=== PATIENT | male | born 1970 | race Caucasian/White ===

== ENCOUNTER 2021-06-12 01:38 | Emergency (ER) | payer MEDICAID ==
[~2021-06-12] VITALS: Ht 177.8 cm; Wt 91.0 kg
[2021-06-12 01:40] VITALS: BP 114/77
== END 2021-06-12 09:23 | disposition left against medical advice (07) ==
LOC: ER 01:38
DX: Z53.21 Procedure and treatment not carried out due to patient leaving prior to being seen by health care provider (principal)

== ENCOUNTER 2021-12-06 19:21 | Emergency (ER) | payer MEDICAID | END 2021-12-06 21:18 | disposition left against medical advice (07) | LOC: ER 19:21 | DX: Z53.21 Procedure and treatment not carried out due to patient leaving prior to being seen by health care provider (principal) ==

== ENCOUNTER 2021-12-13 08:31 | Emergency (ER) | payer MEDICAID ==
[~2021-12-13] VITALS: Ht 177.8 cm; Wt 77.0 kg
[2021-12-13 08:37] VITALS: BP 127/87
== END 2021-12-13 10:25 | disposition left against medical advice (07) ==
LOC: ER 08:31
DX: Z53.21 Procedure and treatment not carried out due to patient leaving prior to being seen by health care provider (principal)

== ENCOUNTER 2024-01-15 13:02 | Emergency (ER) | payer MEDICAID ==
[~2024-01-15] VITALS: Ht 177.8 cm; Wt 83.0 kg
[~2024-01-15 13:02] MED LIST: LEVO-65 MT; TAMS-11 MT
[2024-01-15 13:05] VITALS: O2SAT 99
[2024-01-15 13:14] VITALS: BP 124/83; PULSE 100; RESP 16; TEMP 98; O2SAT 98
== END 2024-01-15 16:52 | disposition home or self-care (01) ==
LOC: ER 13:02
DX: S90.822A Blister (nonthermal), left foot, initial encounter (principal); I10 Essential (primary) hypertension; Z98.890 Other specified postprocedural states; X58.XXXA Exposure to other specified factors, initial encounter; Y93.89 Activity, other specified; Y92.89 Other specified places as the place of occurrence of the external cause; Y99.8 Other external cause status
CPT/HCPCS: 73630; 99283

== ENCOUNTER 2024-02-20 09:08 | Emergency (ER) | payer MEDICAID ==
[~2024-02-20] VITALS: Ht 172.7 cm; Wt 81.0 kg
[2024-02-20 09:16] VITALS: O2SAT 98
[2024-02-20 10:46] LABS: CHLORIDE 99 mEq/L (98-107); POTASSIUM 3.2 mEq/L (3.5-5.1); SODIUM 135 mEq/L (136-145)
[2024-02-20 10:47] LABS: BASOPHILS % 0.8 % (0.0-2.0); CALCIUM 10.1 mg/dL (8.7-10.4); CARBON DIOXIDE 23 mEq/L (21-32); EOSINOPHILS % 1.1 % (0.0-5.0); HEMATOCRIT. 38.3 % (42.0-52.0); LYMPHOCYTES % 18.5 % (20.0-50.0); MEAN CORPUSCULAR HEMOGLOBIN 36.5 pg (28.0-32.0); MEAN CORPUSCULAR VOLUME 107.5 fL (80.0-94.0); MEAN PLATELET VOLUME 8.2 fl (7.4-10.4); MONOCYTES % 9.1 % (2.0-8.0); NEUTROPHILS % 70.5 % (40.0-76.0); RED BLOOD CELL COUNT 3.57 mill/uL (4.7-6.1); RED CELL DISTRIBUTION WIDTH 16.5 % (11.6-14.6)
[2024-02-20 10:52] LABS: CREATININE 0.8 mg/dL (0.6-1.3); ETHANOL BLOOD 50 mg/dL (<10); GLUCOSE 79 mg/dL (70-105); UREA NITROGEN BLOOD 7 mg/dL (9-23)
[2024-02-20 10:54] LABS: ALANINE AMINOTRANSFERASE 56 IU/L (10-49); ALBUMIN 4.7 g/dL (3.2-4.8); ASPARTATE AMINOTRANSFERASE 102 IU/L (<34); BILIRUBIN DIRECT 0.6 mg/dL (<=3.0); BILIRUBIN TOTAL 1.8 mg/dL (0.1-1.0); PROTEIN TOTAL 8.2 g/dL (6.0-8.3)
[2024-02-20 10:55] LABS: DIFFERENTIAL COMMENT 1
[2024-02-20 10:57] LABS: ADD RBC MORPHOLOGY YES; PLATELET 46 x1000/uL (130-400)
[2024-02-20] MEDS: CHLORDIAZEPOXIDE 25MG CAPSULE PO ONE (11:16)
[2024-02-20] MEDS: POTASSIUM CHLORIDE 20MEQ/PACKET PO ONE (11:16)
[2024-02-20] MEDS: MAGNESIUM/ALUMINUM HYDROXIDE/SIMETHICONE 30ML UDC PO STA (11:16)
[2024-02-20 11:18] VITALS: BP 111/64; PULSE 100; RESP 18; TEMP 36.89184; O2SAT 98
[2024-02-20 13:53] LABS: ANISOCYTOSIS 1+; PLATELET ESTIMATE MARKEDLY DECREASED
== END 2024-02-20 11:42 | disposition home or self-care (01) ==
LOC: ER 09:08
DX: M19.021 Primary osteoarthritis, right elbow (principal); G89.11 Acute pain due to trauma; D69.6 Thrombocytopenia, unspecified; F10.939 Alcohol use, unspecified with withdrawal, unspecified; E87.6 Hypokalemia; I10 Essential (primary) hypertension; E78.00 Pure hypercholesterolemia, unspecified; Z98.890 Other specified postprocedural states; Y90.2 Blood alcohol level of 40-59 mg/100 ml
CPT/HCPCS: 36415; 73080; 73090; 80048; 80076; 80320; 85025; 99284; G0480

== ENCOUNTER 2024-11-19 10:23 | Emergency (ER) | payer MEDICAID ==
[~2024-11-19] VITALS: Ht 170.2 cm; Wt 75.0 kg
[~2024-11-19 10:23] MED LIST changes: -TAMS-11 MT; +TAMS-54 MT
[2024-11-19 10:44] VITALS: O2SAT 98
[2024-11-19 11:44] LABS: BASOPHILS % 0.8 % (0.0-2.0); EOSINOPHILS % 3.0 % (0.0-5.0); HEMATOCRIT. 39.3 % (42.0-52.0); HEMOGLOBIN. 13.6 g/dL (14.0-18.0); LYMPHOCYTES % 34.8 % (20.0-50.0); MEAN PLATELET VOLUME 7.5 fl (7.4-10.4); MONOCYTES % 8.5 % (2.0-8.0); NEUTROPHILS % 52.9 % (40.0-76.0); PLATELET 173 x1000/uL (130-400); RED BLOOD CELL COUNT 3.87 mill/uL (4.7-6.1); RED CELL DISTRIBUTION WIDTH 13.0 % (11.6-14.6)
[2024-11-19 12:03] LABS: CLARITY URINE CLEAR (CLEAR); COLOR URINE YELLOW (YELLOW); GLUCOSE URINE NEGATIVE (NEGATIVE); KETONES URINE TRACE (NEGATIVE); LEUKOCYTE ESTERASE URINE TRACE (NEGATIVE); NITRITE URINE NEGATIVE (NEGATIVE); OCCULT BLOOD URINE NEGATIVE (NEGATIVE); PH URINE 6.0 (4.5-8.0); PROTEIN URINE NEGATIVE (NEGATIVE); SPECIFIC GRAVITY URINE 1.027 (1.005-1.030); UROBILINOGEN URINE 1.0 E.U./dL (0.2-1.0)
[2024-11-19 12:04] LABS: CREATININE 0.8 mg/dL (0.6-1.3); ETHANOL BLOOD < 10 mg/dL (<10); UREA NITROGEN BLOOD 15 mg/dL (9-23)
[2024-11-19 12:06] LABS: ASPARTATE AMINOTRANSFERASE 19 IU/L (<34); BILIRUBIN DIRECT 0.2 mg/dL (<=3.0); BILIRUBIN TOTAL 0.7 mg/dL (0.1-1.0); PROTEIN TOTAL 7.0 g/dL (6.0-8.3)
[2024-11-19 12:25] LABS: MUCUS URINE 3+ /lpf (NONE/TRACE)
[2024-11-19 12:26] LABS: RBC URINE 0-2 /hpf (0-2)
[2024-11-19 12:29] LABS: BACTERIA URINE TRACE; SQUAMOUS EPITHELIAL CELL URINE FEW /lpf (RARE/1+)
[2024-11-19] MEDS: KETOROLAC 30MG/ML VIAL IM ONE (12:58)
[2024-11-19] MEDS ORDERED: LIDO700A30 TP (13:07)
[2024-11-19] MEDS ORDERED: CEFP200T14 MT (13:07)
[2024-11-19] MEDS ORDERED: IBUP-2029 MT (13:07)
[2024-11-19 13:52] VITALS: BP 131/80; PULSE 60; RESP 16; TEMP 36.7; O2SAT 98
== END 2024-11-19 13:53 | disposition home or self-care (01) ==
LOC: ER 10:23
DX: N39.0 Urinary tract infection, site not specified (principal); E78.00 Pure hypercholesterolemia, unspecified; I10 Essential (primary) hypertension; Z79.899 Other long term (current) drug therapy; Z98.890 Other specified postprocedural states
CPT/HCPCS: 80076; 80048; 81003; 80320; 83690; 85025; 36415; 74176; 96372; 99285; J1885; G0480

== ENCOUNTER 2025-02-04 10:05 | Inpatient (IN) | payer MEDICAID ==
[~2025-02-04] VITALS: Ht 170.2 cm; Wt 92.5 kg
[~2025-02-04 10:05] MED LIST changes: +CEFP200T14 MT; +IBUP-1455 MT; +LIDO700A30 TP
[2025-02-04 10:07] VITALS: O2SAT 99
[2025-02-04] MEDS: FOLIC ACID 1 MG, THIAMINE HCL 100 MG, MVI, ADULT NO.1 10 ML in DEXTROSE 5% WATER 1,000 ML IV ONE (10:15)
[2025-02-04] MEDS: LORAZEPAM 2MG/ML UD SYRINGE IV SCH (10:37)
[2025-02-04] MEDS: CHLORDIAZEPOXIDE 25MG CAPSULE PO ONE (10:37)
[2025-02-04 10:39] LABS: BASOPHILS % 0.4 % (0.0-2.0); EOSINOPHILS % 0.0 % (0.0-5.0); HEMATOCRIT. 40.9 % (42.0-52.0); HEMOGLOBIN. 13.9 g/dL (14.0-18.0); LYMPHOCYTES % 8.7 % (20.0-50.0); MEAN PLATELET VOLUME 8.5 fl (7.4-10.4); MONOCYTES % 3.4 % (2.0-8.0); NEUTROPHILS % 87.5 % (40.0-76.0); PLATELET 71 x1000/uL (130-400); RED BLOOD CELL COUNT 4.09 mill/uL (4.7-6.1); RED CELL DISTRIBUTION WIDTH 13.4 % (11.6-14.6)
[2025-02-04 11:01] LABS: CREATININE 0.8 mg/dL (0.6-1.3)
[2025-02-04 11:02] LABS: ETHANOL BLOOD < 10 mg/dL (<10); UREA NITROGEN BLOOD 13 mg/dL (9-23)
[2025-02-04 11:03] LABS: ASPARTATE AMINOTRANSFERASE 74 IU/L (<34)
[2025-02-04 11:04] LABS: BILIRUBIN DIRECT 0.6 mg/dL (<=3.0); BILIRUBIN TOTAL 2.2 mg/dL (0.1-1.0); PROTEIN TOTAL 8.2 g/dL (6.0-8.3)
[2025-02-04] MEDS: LORAZEPAM 1MG TABLET PO PRN (16:18)
[2025-02-04] MEDS: CHLORDIAZEPOXIDE 25MG CAPSULE PO SCH (16:18)
[2025-02-04] MEDS: ONDANSETRON HCL 4MG/2ML INJ IV PRN (17:09)
[2025-02-04 18:30] VITALS: BP 119/74; PULSE 75; RESP 18; TEMP 36.6; O2SAT 97
[2025-02-04 20:00] VITALS: BP 108/66; PULSE 70; RESP 20; TEMP 36.5; O2SAT 98
[2025-02-05] VITALS (7 sets, daily range): BP systolic 104–153; BP diastolic 70–100; PULSE 64–109; RESP 18–20; TEMP 36.4–36.7; O2SAT 94–99
[2025-02-05] MEDS ORDERED: HYDROCODONE/ACETAMINOPHEN 5/325MG TABLET PO PRN (22:00)
[2025-02-05] MEDS ORDERED: NALOXONE HCL 0.4MG/ML VIAL IV PRN (22:15)
[2025-02-05] MEDS: ACETAMINOPHEN 325MG TABLET PO PRN (22:35)
[2025-02-06] VITALS: BP 112/70; PULSE 80; RESP 20; TEMP 36.3; O2SAT 97
[2025-02-06 04:00] VITALS: BP 112/75; PULSE 58; RESP 20; TEMP 36.6; O2SAT 95
[2025-02-06 08:00] VITALS: BP 113/82; PULSE 109; RESP 20; TEMP 36.4; O2SAT 96
[2025-02-06 12:00] VITALS: BP 100/70; PULSE 92; RESP 20; TEMP 36.6; O2SAT 98
[2025-02-06 15:38] VITALS: BP 108/64; PULSE 85; RESP 18; TEMP 97.2
== END 2025-02-06 17:23 | disposition home or self-care (01) | DRG 775 ==
LOC: ER 10:30 → 8WST 12:00 → EDBEDREQTM 12:01 → EDBEDREQ 12:01
PROVIDERS: ADMIT Internal Medicine; ATTEND Internal Medicine
DX: F10.939 Alcohol use, unspecified with withdrawal, unspecified (principal); E78.00 Pure hypercholesterolemia, unspecified; I10 Essential (primary) hypertension; Y90.9 Presence of alcohol in blood, level not specified
CPT/HCPCS: 36415; 80048; 80076; 80320; 82140; 85025; 87426; 96365; 99285; A4606; J2060; J2405; J3411; J3490; J7070; G0480